=== PATIENT | male | born 1965 | race Caucasian/White ===

== ENCOUNTER 2020-11-29 19:42 | Emergency (ER) | payer OTHER ==
[~2020-11-29] VITALS: Ht 177.8 cm; Wt 74.8 kg
[2020-11-29 21:41] VITALS: BP 129/84
== END 2020-11-29 21:41 | disposition home or self-care (01) ==
LOC: ER 19:42
DX: G89.29 Other chronic pain (principal); M25.512 Pain in left shoulder; F17.210 Nicotine dependence, cigarettes, uncomplicated; I10 Essential (primary) hypertension